=== PATIENT | female | born 1965 | race Caucasian/White ===

== ENCOUNTER 2017-10-23 22:48 | Emergency (ER) | payer MEDICAID ==
[~2017-10-23] VITALS: Ht 165.1 cm; Wt 59.0 kg
[2017-10-24 05:30] VITALS: BP 107/75
[2017-10-24] MEDS ORDERED: ACETAMINOPHEN 500MG TABLET PO ONE (05:30)
== END 2017-10-24 06:30 | disposition home or self-care (01) ==
LOC: ER 22:59
DX: M79.672 Pain in left foot (principal); M79.671 Pain in right foot; F20.9 Schizophrenia, unspecified; I10 Essential (primary) hypertension; E11.9 Type 2 diabetes mellitus without complications; F17.210 Nicotine dependence, cigarettes, uncomplicated; F12.10 Cannabis abuse, uncomplicated; Z88.0 Allergy status to penicillin; Z88.8 Allergy status to other drugs, medicaments and biological substances; X58.XXXA Exposure to other specified factors, initial encounter; Y93.01 Activity, walking, marching and hiking; Y92.89 Other specified places as the place of occurrence of the external cause; Y99.8 Other external cause status
CPT/HCPCS: 99283

== ENCOUNTER → 2018-04-14 | Emergency (ER) | payer MEDICAID ==
[~2018-04-14] VITALS: Ht 160 cm; Wt 60.0 kg
[2018-04-14 12:38] VITALS: BP 112/68
== END | disposition home or self-care (01) ==
LOC: ER 12:30
DX: M54.5 Low back pain (principal); Y04.2XXA Assault by strike against or bumped into by another person, initial encounter; Y93.89 Activity, other specified; Y92.238 Other place in hospital as the place of occurrence of the external cause
CPT/HCPCS: 99284